=== PATIENT | male | born 1985 | race Caucasian/White ===

== ENCOUNTER 2016-06-24 20:58 | Emergency (ER) | payer BC ==
[~2016-06-24 20:58] MED LIST: IBUPROFEN800 MG PO; NO MEDICATIONS; PEN-VEE K PO
[2016-06-24 21:22] LABS: INFLUENZA A NEG (NEG); INFLUENZA B POS (NEG)
== END 2016-06-24 22:07 | disposition home or self-care (01) ==
LOC: SED 20:58
PROVIDERS: Nurse Practitioner
DX: J10.1 Influenza due to other identified influenza virus with other respiratory manifestations (principal); L50.0 Allergic urticaria; F17.210 Nicotine dependence, cigarettes, uncomplicated
CPT/HCPCS: 87651; 87804; 99283

== ENCOUNTER 2016-10-24 10:45 | Emergency (ER) | payer BC ==
--- NOTE | ~2016-10-24 | CR111 ---
[facility] A Service of [facility] & [facility] RADIOLOGY TEXT RESULTS PATIENT: DIANE BREEN LOCATION: SED : 85 UNIT #: [id number] AGE: [address]: JUSTIN PATEL SEX: M ORDER DR: [id number] [id number] MR#: [id number] Acc #: [id number] NAME: DIANE BREEN. : 1985 SEX: M STUDY DATE/TIME: 10/24/2016 10:56 UNIT: SED ROOM: STUDY DESCRIPTION: CR Finger 2 View 3rd Rt Attending Physician: Justin Patel Ordering Physician: Justin Patel Primary Care Physician: Primary Care Physician No MEDICAL IMAGING REPORT This report is preliminary unless electronic signature is present. EXAM Right third finger HISTORY Laceration this morning. Trauma. TECHNIQUE Three views of the third digit were obtained. FINDINGS Three views of the third digit show a nondisplaced transverse terminal tuft fracture. The DIP joint is intact. No radiodense foreign bodies are seen. The remainder the finger is normal. IMPRESSION Nondisplaced oblique transverse fracture of the terminal tuft. Dictated by... Zane Basurto M.D. THIS IS AN ELECTRONICALLY VERIFIED REPORT Zane Basurto M.D. at 10/24/2016 4:54 PM RLF/betty TD: 10/24/2016 13:42 JOB #: [id number] MEDICAL IMAGING REPORT Page 1 of 1
== END 2016-10-24 12:08 | disposition home or self-care (01) ==
LOC: SED 10:45
DX: S62.662A Nondisplaced fracture of distal phalanx of right middle finger, initial encounter for closed fracture (principal); F17.210 Nicotine dependence, cigarettes, uncomplicated; W23.0XXA Caught, crushed, jammed, or pinched between moving objects, initial encounter; Y92.009 Unspecified place in unspecified non-institutional (private) residence as the place of occurrence of the external cause
CPT/HCPCS: 29130; 73140; 99283